=== PATIENT | male | born 2005 | race Caucasian/White ===

== ENCOUNTER 2023-06-28 03:41 | Emergency (ER) | payer MEDICAID ==
[~2023-06-28] VITALS: Ht 180.3 cm; Wt 73.0 kg
[2023-06-28 03:51] VITALS: BP 156/86; TEMP 97.9; O2SAT 97
[2023-06-28 03:53] VITALS: PULSE 101; RESP 16
== END 2023-06-28 04:01 | disposition left against medical advice (07) ==
LOC: ER 03:41
DX: T65.91XA Toxic effect of unspecified substance, accidental (unintentional), initial encounter (principal); Z53.21 Procedure and treatment not carried out due to patient leaving prior to being seen by health care provider; Y92.9 Unspecified place or not applicable
CPT/HCPCS: 99281